=== PATIENT | male | born 1935 | race African-American/Black ===

== ENCOUNTER 2016-07-20 10:36 | Inpatient (IN) | payer OTHER ==
[~2016-07-20] VITALS: Ht 180.3 cm; Wt 113.0 kg
--- NOTE | ~2016-07-20 | PLAN ---
[facility] [place] [address] REHAB UNIT PLAN OF CARE Name: BRAYAN REZA Room #: 504-1 ADM IN M.R.#: [id number] Admission: 07/20/16 Attend Phys: Roland Duong MD Discharge: Date of : 37 Report #: [id number] THIS REPORT FOR: //name// CC: Roland Duong [facility] unknown DATE OF SERVICE: 07/22/2016 The patient was seen earlier. He was sleepy, but would arouse. His temperature is 36.5, pulse 68, respirations 20, blood pressure 174/68. He has been involved in therapies. Transfers are max assist. He walked 2 feet max with assist of 2 with a front-wheeled walker. In occupational therapy, lower body dressing is dependent, upper body dressing is min assist. In speech therapy, he has moderate comprehensive deficits with moderate expressive deficits. ASSESSMENT: 1. Medical complexity with generalized debilitation. 2. Acute hypoxemic hypercapnic respiratory failure that resolved. 3. Recent pneumococcal pneumonia with sepsis. 2. Acute renal failure, undergoing hemodialysis as per Nephrology. 5. Obstructive sleep apnea. 6. Diabetes mellitus type 2. 7. Hypertension. 8. Obesity. PLAN: The overall plan of care is based on the preadmission screen, post-admission physician evaluation and information garnered from therapy assessments. 1. Estimated length of stay is probably going to be on the long side as he is at a lower functional level. 2. Medical prognosis is reasonably good. 3. Anticipated interventions includes the interdisciplinary acute inpatient rehabilitation program with PT, OT and speech, rehabilitation nursing assisting regarding medication management, skin care prophylaxis, bowel and bladder issues and nursing education. 4. Anticipated functional outcomes would be for the patient to ideally improve as far as being min assist with basic transfers and short distance ambulation with a walker. Ideally, he will achieve independence, but he need to at least get to the level where his can handle him at home. 5. The patient's destination will be back to the home setting where he lives with his . 6. Expected therapy by discipline includes PT, OT and speech 1 [place] [address] REHAB UNIT PLAN OF CARE Name: BRAYAN REZA Room #: 504-1 ADM IN M.R.#: [id number] Admission: 07/20/16 Attend Phys: Roland Duong MD Discharge: Date of : 37 Report #: [id number] each, 5 days a week throughout the duration of the acute inpatient rehabilitation stay. <ELECTRONICALLY SIGNED> By: Roland Duong MD 08/04/16 1409 1023 1148 Roland Duong MD /nt
--- NOTE | ~2016-07-20 | EKG ---
[address] [address] ELECTROCARDIOGRAM REPORT Name: BRAYAN REZA Room #: 506-1 ADM IN M.R.#: [id number] Admission: 07/20/16 Attend Phys: Roland Duong MD Discharge: Date of : 37 Report #: [id number] THIS REPORT FOR: //name// [facility] Test Date: 2016-07-20 Test Time: 18:55:02 Pat Name: BRAYAN REZA Department: Room: 506 Gender: M Ultrasound Applications Specialist: Kory TURCIOS : 1935 Requested By: Roland Duong Order Number: [id number] MD: Long Erwin Measurements Intervals [place] Rate: 89 P: 53 LA: 202 QRS: -81 QRSD: 173 T: 37 QT: 415 QTc: 505 Interpretive Statements Sinus rhythm Probable left atrial enlargement RBBB and LAFB Compared to ECG 07/14/2016 01:16:33 Second-degree AV block, Mobitz type I (Wenckebach) no longer present Possible ischemia no longer present Electronically Signed On 07-21-2016 8:41:41 LEAN ENGINEER by Long Erwin [email or web address] <ELECTRONICALLY SIGNED> By: Long Erwin MD 07/21/16 0841 54 54 Long Erwin MD /EPI
--- NOTE | ~2016-07-20 | HC ---
[facility] [place] [address] CONSULTATION Name: BRAYAN REZA Room #: 504-1 ADM IN M.R.#: [id number] Admission: 07/20/16 Attend Phys: Roland Duong MD Discharge: Date of : 37 Report #: [id number] THIS REPORT FOR: //name// CC: Roland Duong [facility] unknown DATE OF SERVICE: 07/31/2016 ATTENDING PHYSICIAN: Roland Duong M.D. NEON SIGN ERECTOR: Byron Cordero, Ph.D. CLINICAL PRESENTATION: The patient is a 81-year-old male admitted to the [facility] Rehabilitation Unit for a comprehensive inpatient rehabilitation program to improve functional mobility and activities of daily living and self-care secondary to impairment from medical complexity and generalized debilitation. The patient was initially admitted to the [facility] for treatment of an acute hypoxemic hypercapnic respiratory failure. The respiratory failure has resolved, and he has returned to the rehabilitation unit for followup therapy. His initial assessment also includes recent pneumococcal pneumonia with sepsis; acute renal failure, likely acute on chronic, receiving hemodialysis; obstructive sleep apnea; diabetes mellitus type 2 and hypertension. A complete description of his medical condition and history can be found in his medical record. Neuropsychological consultation was requested to provide assistance in the assessment of cognitive and emotional status and to provide recommendations and services. Prior to this most recent admission, he was living at home with his . She has been helping him with instrumental and some basic activities of daily living. The patient is a high school graduate. 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 He has 2 children. His family is supportive. The patient had significant difficulty with verbal expression initially. However, his verbal expression is much improved at this time. TECHNIQUES UTILIZED: Clinical interview, review of medical records, staff consultation and behavioral observation, mini mental status exam 2 standard version and clock drawing. EXAMINATION FINDINGS: The patient was alert and cooperative with the assessment. He describes his current symptoms to include tiredness and fatigue, difficulty with memory and word finding. Decreased initiative is described by his . The patient does have subjective depression and anxiety in regard to initiative and self control. Increasing dependence on his and family can be seen as having had an impact on anxiety. [facility] [address] [place] [address] CONSULTATION Name: BRAYAN REZA Room #: 504-1 ADM IN .R.#: [id number] Admission: 07/20/16 Attend Phys: Roland Duong MD Discharge: Date of : 37 Report #: [id number] His performance on the mini mental status exam 2 brief version is improved to a raw score of 16. Earlier assessment was a raw score of 7. While impairment is still noted to be moderate to severe with a T score of 22 and percentile rank of less than 1. However, he was 3/3 for initial registration, 3/5 for orientation to time and 4/[address]. He was 1/3 for immediate recall of 3 items after a brief time delay and distraction. His performance improved on the MMSE 2 standard version from a raw score of 15 to a raw score of 19. He was 1/5 for Serial 7's, 2/2 for naming and 1/1 for repetition. He was 3/3 for auditory comprehension. He was able to read and follow a single command. The patient had difficulty with writing a sentence. He was unable to copy a simple geometric design. The patient also was unable to draw a clock and set the hands at a designated time. Perseveration and decreased organization was noted. Impairment in working memory is also suggested. DIAGNOSTIC IMPRESSION: Delirium appears to have resolved Major neurocognitive disorder (dementia), due to medical etiology, without behavior disorder - extent to be determined - moderate to severe at this time Adjustment disorder with depressed mood and anxiety. RECOMMENDATIONS: Continued structured therapy with frequent reorientation and redirection when necessary. He also would benefit from reassurance and support in regard to the safety of his environment. His describes him as improved and almost back to his premorbid prehospital state. Cuing and assistance with activities of daily living will likely still be necessary upon his discharge. Providing the patient with a written structure and schedule will also be of benefit in regard to cognitive compensation. Thank you very much for allowing me to provide the consultation on this patient. <ELECTRONICALLY SIGNED> By: Byron Cordero, PhD 08/01/16 1213 1801 2125 Byron Cordero, PhD /nt
--- NOTE | ~2016-07-20 | H ---
[facility] [place] [address] HISTORY AND PHYSICAL Name: BRAYAN REZA Room #: 506-1 ADM IN M.R.#: [id number] Admission: 07/20/16 Attend Phys: Roland Duong MD Discharge: Date of : 37 Report #: [id number] THIS REPORT FOR: //name// CC: Roland Duong [facility] unknown DATE OF SERVICE: 07/20/2016 HISTORY OF PRESENT ILLNESS: The patient is a 81-year-old male well known to me from his prior inpatient rehabilitation stay. He had pneumococcal sepsis with bacteremia, acute hypoxic respiratory failure that improved, second degree AV block, acute renal insufficiency superimposed on chronic kidney disease with dialysis and history of urinary retention, on Flomax. He had been on the acute inpatient rehab [facility], but was noted to have an episode of worsening responsiveness with increasing his creatinine as well as having an acute hypoxic respiratory failure for which he was discharged off the rehab [facility] down to the Intensive Care Unit. He was mechanically ventilated. He has since improved, has been extubated. His acute hypoxic hypercapnic respiratory failure has resolved. He continues on hemodialysis as per nephrology. He has a history of pneumococcal sepsis and group B strep. He was also noted to have a urinary tract infection. He does have medical complexity with generalized debilitation and has been readmitted for acute in-hospital inpatient rehabilitation. PAST MEDICAL HISTORY: Is per my prior history and physical. It includes hypertension, tobacco abuse, diabetes mellitus, neuropathy, obesity, peripheral vascular disease, chronic kidney disease stage II, coronary artery disease and cardiac stents. HABITS: Noted to be an every day, current smoker prior to his originally admission, 1 pack per day. Alcohol use weekly. SOCIAL HISTORY: He lives with his , house, two steps in, premorbid household ambulator with roller walker. He did need some help with socks and shoes. did instrumental ADLs. REVIEW OF SYSTEMS: No complaints of chest pain, shortness of breath or abdominal discomfort. PHYSICAL EXAMINATION: GENERAL: A 81-year-old -Swedish male in no obvious distress. VITAL SIGNS: Temperature 98.6, pulse 72, respirations 18, blood pressure 120/69. He had a CPAP in place. HEENT: Facies appeared to be symmetric. CHEST: Some diffuse decreased breath sounds. CARDIOVASCULAR: Sounded regular rate and rhythm. ABDOMEN: Obese, bowel sounds positive, nontender. [facility] [address] [place] [address] HISTORY AND PHYSICAL Name: BRAYAN REZA Room #: 506-1 ADM IN M.R.#: [id number] Admission: 07/20/16 Attend Phys: Roland Duong MD Discharge: Date of : 37 Report #: [id number] GENITOURINARY AND RECTAL: Deferred. NEUROLOGIC: Functional range of motion of both upper extremities, strength is grade 3+ to 4-/5. LOWER EXTREMITIES: No focal calf swelling, functional range of motion with strength grade 4-/5 to 3+/5. ASSESSMENT: 1. Medical complexity with generalized debilitation. 2. Acute hypoxemic hypercapnic respiratory failure that resolved. 3. Recent pneumococcal pneumonia with sepsis. 4. Acute renal failure, likely acute on chronic, receiving hemodialysis as per Nephrology. 5. Obstructive sleep apnea. Receiving nocturnal CPAP. 6. Diabetes mellitus type 2. 7. Hypertension. PLAN: Appreciate Nephrology involvement. They are discontinuing the Neurontin to be only given post-dialysis 3 times a week. Discontinuing the Ultram to make it q. 6 hours p.r.n. From a postadmission physician evaluation perspective, there are no relevant changes since the preadmission screening. Please see the above review of prior and current medical and functional conditions and comorbidities. Please see the patient's prior and current functional status. As far as risks of complications, he does have the multiple medical comorbidities as noted above. Initial plan of care involves the interdisciplinary acute inpatient rehabilitation program with PT and OT and speech involved and trying to improve his strength and endurance and functional independence. Measurable functional goals would be for him to hopefully become independent with basic functional mobility and ADLs at least at the walker level if not the wheelchair level. Prognosis is reasonably good with estimated length of stay probably fairly along with his lower functional level. Potential barriers would include his multiple medical comorbidities and his decreased functional status. <ELECTRONICALLY SIGNED> By: Roland Duong MD 07/21/16 1419 1047 1112 Roland Duong MD /nt
--- NOTE | ~2016-07-20 | EKG ---
[address] [address] ELECTROCARDIOGRAM REPORT Name: BRAYAN REZA Room #: 504-1 ADM IN M.R.#: [id number] Admission: 07/20/16 Attend Phys: Roland Duong MD Discharge: Date of : 37 Report #: [id number] THIS REPORT FOR: //name// [facility] Test Date: 2016-08-03 Test Time: 11:22:00 Pat Name: BRAYAN REZA Department: Room: [facility] Gender: M Safety Relief Valve Technician: AMIRA : 1935 Requested By: Bibi Jones Order Number: [id number] MD: Long Erwin Measurements Intervals [place] Rate: 79 P: 57 [place]: 187 QRS: -73 QRSD: 176 T: 7 QT: 436 QTc: 500 Interpretive Statements Sinus rhythm Probable left atrial enlargement RBBB and LAFB Compared to ECG 07/20/2016 18:55:02 No significant changes Electronically Signed On 08-04-2016 11:09:18 WATCH PARTS GRINDER by Long Erwin [email or web address] <ELECTRONICALLY SIGNED> By: Long Erwin MD 08/04/16 1109 21 21 Long Erwin MD /BRITTANI
--- NOTE | ~2016-07-20 | EKG ---
[address] [address] ELECTROCARDIOGRAM REPORT Name: BRAYAN REZA Room #: 504-1 ADM IN M.R.#: [id number] Admission: 07/20/16 Attend Phys: Roland Duong MD Discharge: Date of : 37 Report #: [id number] THIS REPORT FOR: //name// [facility] Test Date: 2016-08-02 Test Time: 08:31:55 Pat Name: BRAYAN REZA Department: Room: [facility] Gender: M Glass Bead Maker: ashanti : 1935 Requested By: Roland Duong Order Number: [id number] MD: Long Erwin Measurements Intervals [place] Rate: 91 P: 50 [place]: 185 QRS: -87 QRSD: 172 T: 24 QT: 421 QTc: 519 Interpretive Statements Sinus rhythm RBBB and LAFB Baseline wander in lead(s) V6 Compared to ECG 07/20/2016 18:55:02 No significant changes Electronically Signed On 08-04-2016 10:50:07 INDUSTRIAL PROPERTY APPRAISER by Long Erwin [email or web address] <ELECTRONICALLY SIGNED> By: Long Erwin MD 08/04/16 1050 0 0 Long Erwin MD /BRITTANI
[~2016-07-20 10:36] MED LIST: ASPIRIN EC325 M1 PO; ATORVASTATIN CA40 MG PO; AUGMENTIN 875875 MG PO; BENGAY GREASELE57 GM; CARVEDILOL25 MG PO; DITROPAN XL5 M1 PO; DUONEB 2.5-0.5 M3 ML INH; FINASTERIDE5 MG PO; FLOMAX0.4 MG PO; HUMALOG100 UNIT/1 SUBQ; HYDRALAZINE 5050 MG PO; HYDROCHLOROTHIA25 M2 PO; KETOCONAZOLE60 GM; LEVEMIR FL100 UNIT/2 SQ; LEVEMIR SUBQ; LIPITOR80 MG PO; METFORMIN HCL1000 MG PO; MIRALAX255 GM PO; NAPROSYN500 MG PO; NEURONTIN 300300 M1 PO; NORVASC10 MG PO; NOVOLOG100 UNIT/1 SUBQ; PANTOPRAZOLE SO40 M1 PO; PLAVIX 75 MG TA75 M1 PO; PREDNISONE 10 M10 MG PO; PREDNISONE 20 M20 MG PO; TRAMADOL 50 MG50 MG PO; VIAGRA100 MG PO; VITAMIN B-121000 MCG PO; VITAMIN D1000 UNI2 PO; ZESTRIL40 MG PO
[2016-07-20 15:25] VITALS: BP 138/60
[2016-07-20 18:45] VITALS: BP 148/52
[2016-07-21 05:02] VITALS: BP 120/69
[2016-07-21 05:40] LABS: HEMATOCRIT 31.3 % (42.0-52.0); HEMOGLOBIN 10.2 gm/dL (14.0-18.0); MCH 27.7 pg (26.0-34.0); MCHC 32.4 % (28.0-37.0); MCV 85.5 fL (80.0-100.0); RBC 3.67 mil/uL (4.50-6.00); RDW 16.9 % (10.5-14.5); WBC 8.4 thou/uL (4.0-11.0)
[2016-07-21 06:06] LABS: ALBUMIN 2.9 g/dL (3.4-5.0); CALCIUM 9.2 mg/dL (8.5-10.1); MAGNESIUM 2.4 mg/dL (1.8-2.4); PHOSPHORUS 6.3 mg/dL (2.5-4.9); POTASSIUM 4.2 mmol/L (3.5-5.1); TOTAL BILIRUBIN 0.3 mg/dL (<0.1-1.0); TOTAL PROTEIN 7.1 g/dL (6.4-8.2)
[2016-07-21 09:00] VITALS: BP 127/59
[2016-07-21 13:30] VITALS: BP 149/66
[2016-07-21 16:36] VITALS: BP 167/79
[2016-07-21 21:00] VITALS: BP 166/71
[2016-07-22 05:23] VITALS: BP 174/68
[2016-07-22 06:15] LABS: HEMATOCRIT 33.4 % (42.0-52.0); HEMOGLOBIN 10.9 gm/dL (14.0-18.0); MCH 27.7 pg (26.0-34.0); MCHC 32.5 % (28.0-37.0); MCV 85.3 fL (80.0-100.0); RBC 3.92 mil/uL (4.50-6.00); RDW 17.1 % (10.5-14.5); WBC 10.6 thou/uL (4.0-11.0)
[2016-07-22 06:38] LABS: ALBUMIN 3.1 g/dL (3.4-5.0); CALCIUM 9.5 mg/dL (8.5-10.1); CREATININE 8.9 mg/dL (0.6-1.3); POTASSIUM 4.7 mmol/L (3.5-5.1)
[2016-07-22 06:57] LABS: PHOSPHORUS 9.1 mg/dL (2.5-4.9)
[2016-07-22 20:22] VITALS: BP 109/50
[2016-07-23 05:34] VITALS: BP 119/48
[2016-07-23 15:53] VITALS: BP 117/69
[2016-07-23 20:16] VITALS: BP 106/46
[2016-07-24 05:07] VITALS: BP 145/59
[2016-07-24 16:00] VITALS: BP 138/43
[2016-07-25 03:58] VITALS: BP 130/56
[2016-07-25 07:45] LABS: HEMATOCRIT 28.7 % (42.0-52.0); HEMOGLOBIN 9.5 gm/dL (14.0-18.0); MCH 28.2 pg (26.0-34.0); MCV 85.4 fL (80.0-100.0); RBC 3.36 mil/uL (4.50-6.00); RDW 16.8 % (10.5-14.5); WBC 7.5 thou/uL (4.0-11.0)
[2016-07-25 08:01] LABS: ALBUMIN 2.7 g/dL (3.4-5.0); CALCIUM 8.5 mg/dL (8.5-10.1); CREATININE 8.8 mg/dL (0.6-1.3); PHOSPHORUS 6.3 mg/dL (2.5-4.9); POTASSIUM 4.1 mmol/L (3.5-5.1)
[2016-07-25 21:00] VITALS: BP 126/52
[2016-07-25 23:11] LABS: % SATURATION 27 % (15-55); IRON 59 ug/dL (38-169); TIBC 218 ug/dL (250-450); UIBC 159 ug/dL (111-343)
[2016-07-26 05:49] VITALS: BP 145/60
[2016-07-26 15:30] VITALS: BP 133/56
[2016-07-26 20:15] VITALS: BP 133/56
[2016-07-27 05:08] VITALS: BP 157/61
[2016-07-27 20:25] VITALS: BP 127/55
[2016-07-28 05:29] VITALS: BP 136/56
[2016-07-28 15:18] VITALS: BP 133/63
[2016-07-28 20:26] VITALS: BP 135/62
[2016-07-29 04:44] VITALS: BP 143/57
[2016-07-29 05:32] LABS: HEMATOCRIT 26.9 % (42.0-52.0); HEMOGLOBIN 8.9 gm/dL (14.0-18.0); MCH 28.4 pg (26.0-34.0); MCHC 33.2 % (28.0-37.0); MCV 85.6 fL (80.0-100.0); RBC 3.14 mil/uL (4.50-6.00); WBC 8.5 thou/uL (4.0-11.0)
[2016-07-29 05:46] LABS: ALBUMIN 2.7 g/dL (3.4-5.0); CALCIUM 8.5 mg/dL (8.5-10.1); CREATININE 7.3 mg/dL (0.6-1.3)
[2016-07-29 20:07] VITALS: BP 126/62
[2016-07-30 05:37] VITALS: BP 130/60
[2016-07-30 07:44] VITALS: BP 126/59
[2016-07-30 15:19] VITALS: BP 118/47
[2016-07-30 21:10] VITALS: BP 115/59
[2016-07-31 04:24] VITALS: BP 130/68
[2016-07-31 15:45] VITALS: BP 120/56
[2016-08-01 02:45] VITALS: BP 124/51
[2016-08-01 03:57] LABS: HEMATOCRIT 26.7 % (42.0-52.0); HEMOGLOBIN 8.7 gm/dL (14.0-18.0); MCH 28.4 pg (26.0-34.0); MCHC 32.5 % (28.0-37.0); MCV 87.5 fL (80.0-100.0); RBC 3.05 mil/uL (4.50-6.00); RDW 16.5 % (10.5-14.5); WBC 6.1 thou/uL (4.0-11.0)
[2016-08-01 04:11] LABS: ALBUMIN 2.6 g/dL (3.4-5.0); CALCIUM 8.6 mg/dL (8.5-10.1); CREATININE 7.9 mg/dL (0.6-1.3); POTASSIUM 4.1 mmol/L (3.5-5.1)
[2016-08-01 11:19] VITALS: BP 106/52
[2016-08-01 16:28] VITALS: BP 100/59
[2016-08-01 20:11] VITALS: BP 134/49
[2016-08-02 05:40] VITALS: BP 110/46
[2016-08-02 09:00] VITALS: BP 98/46
[2016-08-02 09:09] LABS: ABSOLUTE NEUTROPHILS 4.2 thou/uL (1.4-8.2); BASOPHILS 0.5 % (0.0-2.0); EOSINOPHILS 1.8 % (0.0-3.0); HEMATOCRIT 26.7 % (42.0-52.0); HEMOGLOBIN 8.8 gm/dL (14.0-18.0); LYMPHOCYTES 18.3 % (24.0-44.0); MCH 28.7 pg (26.0-34.0); MCHC 32.9 % (28.0-37.0); MCV 87.2 fL (80.0-100.0); MONOCYTES 7.3 % (1.0-8.0); PLATELET COUNT 154 thou/uL (150-400); POLYS 72.1 % (36.0-66.0); RBC 3.06 mil/uL (4.50-6.00); RDW 16.6 % (10.5-14.5); WBC 5.8 thou/uL (4.0-11.0)
[2016-08-02 09:11] LABS: MANUAL DIFF NO
[2016-08-02 09:21] LABS: CALCIUM 8.7 mg/dL (8.5-10.1); POTASSIUM 3.7 mmol/L (3.5-5.1)
[2016-08-02 09:25] LABS: ALBUMIN 2.7 g/dL (3.4-5.0); MAGNESIUM 1.5 mg/dL (1.8-2.4); PHOSPHORUS 2.4 mg/dL (2.5-4.9)
[2016-08-02 09:26] LABS: CREATININE 6.1 mg/dL (0.6-1.3)
[2016-08-02 11:00] VITALS: BP 110/64
[2016-08-02 13:28] VITALS: BP 96/47
[2016-08-02 16:00] VITALS: BP 108/58
[2016-08-03 06:20] VITALS: BP 142/41
[2016-08-04 05:05] VITALS: BP 143/59
[2016-08-04 08:57] VITALS: BP 101/50
[2016-08-04 10:05] VITALS: BP 108/49
[2016-08-04 14:39] VITALS: BP 114/54
[2016-08-05 05:31] VITALS: BP 126/56
[2016-08-05 06:15] LABS: HEMATOCRIT 25.1 % (42.0-52.0); HEMOGLOBIN 8.1 gm/dL (14.0-18.0); MCH 28.4 pg (26.0-34.0); MCHC 32.4 % (28.0-37.0); MCV 87.6 fL (80.0-100.0); RBC 2.87 mil/uL (4.50-6.00); RDW 16.5 % (10.5-14.5); WBC 6.3 thou/uL (4.0-11.0)
[2016-08-05 06:33] LABS: ALBUMIN 2.5 g/dL (3.4-5.0); CALCIUM 8.2 mg/dL (8.5-10.1); CREATININE 6.9 mg/dL (0.6-1.3); PHOSPHORUS 1.7 mg/dL (2.5-4.9); POTASSIUM 3.7 mmol/L (3.5-5.1)
[2016-08-05 16:35] VITALS: BP 126/62
[2016-08-05 20:20] VITALS: BP 122/69
[2016-08-06 05:29] VITALS: BP 142/65
[2016-08-06 16:00] VITALS: BP 140/51
[2016-08-06 20:50] VITALS: BP 150/55
[2016-08-07 05:27] VITALS: BP 142/86
[2016-08-07 12:14] LABS: URINE BILIRUBIN NEGATIVE (Negative); URINE BLOOD NEGATIVE (Negative); URINE COLOR YELLOW; URINE GLUCOSE-RANDOM* NEGATIVE (Negative); URINE KETONES NEGATIVE (Negative); URINE LEUKOCYTES-REFLEX TRACE (Negative); URINE PROTEIN (DIPSTICK) 2+ (Negative); URINE SPECIFIC GRAVITY 1.015 (1.003-1.035); URINE UROBILINOGEN 0.2 E.U./dl (0.2-1.0)
[2016-08-07 12:35] LABS: CASTS None Seen /LPF (None Seen); SQUAMOUS 4-10 Moderate /LPF (0-3)
[2016-08-07 12:36] LABS: CRYSTALS None Seen /LPF (None Seen); URINE RBC None Seen /HPF (0-2); URINE WBC-REFLEX 6-15 Few /HPF (0-5)
[2016-08-07 17:45] VITALS: BP 134/56
[2016-08-07 20:14] LABS: ABSOLUTE NEUTROPHILS 3.6 thou/uL (1.4-8.2); BASOPHILS 0.2 % (0.0-2.0); HEMATOCRIT 24.5 % (42.0-52.0); HEMOGLOBIN 8.3 gm/dL (14.0-18.0); LYMPHOCYTES 18.8 % (24.0-44.0); MCHC 33.8 % (28.0-37.0); MCV 85.8 fL (80.0-100.0); MONOCYTES 8.5 % (1.0-8.0); PLATELET COUNT 150 thou/uL (150-400); POLYS 68.5 % (36.0-66.0); RBC 2.86 mil/uL (4.50-6.00); RDW 16.5 % (10.5-14.5); WBC 5.3 thou/uL (4.0-11.0)
[2016-08-07 20:15] LABS: MANUAL DIFF NO
[2016-08-08 03:37] VITALS: BP 122/45
[2016-08-08 05:45] VITALS: BP 137/60
[2016-08-08 06:45] VITALS: BP 111/51
[2016-08-08 11:26] VITALS: BP 115/48
[2016-08-08 18:31] VITALS: BP 145/66
[2016-08-08 19:37] VITALS: BP 154/65
[2016-08-09 04:17] VITALS: BP 138/59
[2016-08-09 06:42] LABS: ALBUMIN 2.5 g/dL (3.4-5.0); CALCIUM 8.6 mg/dL (8.5-10.1); CREATININE 5.9 mg/dL (0.6-1.3); PHOSPHORUS 2.6 mg/dL (2.5-4.9); POTASSIUM 3.9 mmol/L (3.5-5.1)
[2016-08-09 15:30] VITALS: BP 137/51
[2016-08-09 20:00] VITALS: BP 129/59
[2016-08-10 06:06] VITALS: BP 122/42
[2016-08-11 04:54] LABS: ALBUMIN 2.4 g/dL (3.4-5.0); CALCIUM 8.4 mg/dL (8.5-10.1); PHOSPHORUS 2.1 mg/dL (2.5-4.9); POTASSIUM 3.7 mmol/L (3.5-5.1)
[2016-08-11 04:55] LABS: CREATININE 4.8 mg/dL (0.6-1.3)
[2016-08-11 05:19] VITALS: BP 152/63
[2016-08-11 08:53] VITALS: BP 132/59
[2016-08-11 13:09] VITALS: BP 126/59
[2016-09-14] MEDS ORDERED: LANTUS SOL100 UNIT/1 SQ (01:41)
[2016-09-14] MEDS ORDERED: RENA-VITE RX T1 EACH PO (01:42)
[2016-09-14] MEDS ORDERED: GABAPENTIN 100100 MG PO (01:43)
[2016-09-15] MEDS ORDERED: ELIQUIS5 MG PO (10:28)
== END 2016-08-11 16:10 | DRG 947 ==
PROVIDERS: Hospitalist; Internal Medicine Nephrology; Physical Medicine & Rehabilitation
PROC: 5A1D60Z (ICD-10-PCS; 2016-08-10)
PROC: 05PYX3Z Removal of Infusion Device from Upper Vein, External Approach (ICD-10-PCS; principal; 2016-08-11)
DX: R53.81 Other malaise (principal); J96.01 Acute respiratory failure with hypoxia; J96.02 Acute respiratory failure with hypercapnia; N18.6 End stage renal disease; N17.9 Acute kidney failure, unspecified; I12.0 Hypertensive chronic kidney disease with stage 5 chronic kidney disease or end stage renal disease; G47.33 Obstructive sleep apnea (adult) (pediatric); E11.22 Type 2 diabetes mellitus with diabetic chronic kidney disease; E66.9 Obesity, unspecified; F01.50 Vascular dementia, unspecified severity, without behavioral disturbance, psychotic disturbance, mood disturbance, and anxiety; F43.23 Adjustment disorder with mixed anxiety and depressed mood; D64.9 Anemia, unspecified; I25.10 Atherosclerotic heart disease of native coronary artery without angina pectoris; Z99.2 Dependence on renal dialysis; Z68.34 Body mass index [BMI] 34.0-34.9, adult; Z95.5 Presence of coronary angioplasty implant and graft; Z88.8 Allergy status to other drugs, medicaments and biological substances; Z91.041 Radiographic dye allergy status
CPT/HCPCS: 10092; 10112; 32100

== ENCOUNTER 2016-10-16 20:33 | Inpatient (IN) | payer OTHER ==
[~2016-10-16] VITALS: Ht 177.8 cm; Wt 100.0 kg
--- NOTE | ~2016-10-16 | CATHLAB ---
[facility] [address] [place] [address] INVASIVE PROCEDURE REPORT Name: BRAYAN REZA Room #: 241-P [facility] IN ..#: [id number] Admission: 10/16/16 Attend Phys: Sachin Fairbanks MD Discharge: 10/19/16 Date of : 37 Date of Service: 10/16/162225 Report #: [id number] THIS REPORT FOR: //name// CC: Damon Fairbanks PROCEDURE: Temporary transvenous pacer insertion. INDICATIONS: A 81-year-old male patient with symptomatic complete AV block and bradycardia with hypotension. CREDIT CONTROL ADMINISTRATOR: Lisandro Hanna MD. DESCRIPTION OF PROCEDURE: After informed consent was obtained, the patient was brought to the cardiac catheterization laboratory in stable condition. The right groin was prepped and draped in usual sterile manner. A 6-Albanian venous sheath was then inserted via modified Seldinger technique. Under fluoroscopic visualization, the 5-Albanian temporary wire was then advanced and positioned in the right ventricular apex. The capture and sensing thresholds were verified at less than 0.4 capture at an 0.4. No complications. Sheath was sewn in place. FINAL SETTINGS: A. volts. B. Demand rate of 70. <ELECTRONICALLY SIGNED> By: Lisandro Hanna MD 10/20/16 0131 25 1121 Lisandro Hanna MD /nt
--- NOTE | ~2016-10-16 | H ---
[facility] [place] [address] HISTORY AND PHYSICAL Name: BRAYAN REZA Room #: 241-P ADM IN M.R.#: [id number] Admission: 10/16/16 Attend Phys: Sachin Fairbanks MD Discharge: Date of : 37 Report #: [id number] THIS REPORT FOR: //name// CC: Damon Faibranks DATE OF SERVICE: 10/16/2016 ATTENDING PHYSICIAN: Dr. Bibi Jones. PRIMARY CARE PHYSICIAN: At the [place]. CHIEF COMPLAINT: Altered mental status. HISTORY OF PRESENT ILLNESS: The patient is a 81-year-old male who lives at home with his . Apparently, he started having confusion today. They report that he is normally alert and oriented. He was brought into the ER and he was noted to have a heart rate of 30. He was then in complete heart block and has already been taken for temporary pacemaker placement. He is currently seen postprocedure and in the ICU. He was apparently acting normal well at dialysis today and started acting confused afterwards. He was actually admitted here in September for syncope and no etiology was found during that admission. Initially, in the ER, he was given atropine and calcium gluconate without any improvement in his heart rate, he is now being effectively paced, and he remains slightly confused. His is not present at this time. He is not able to tell me where he is. He gets distracted very easily and starts rambling about other things. He was able to tell me his own birthday. He was able to tell me it was October, but he did not know the year. He is denying any chest pain. PAST MEDICAL HISTORY: Hypertension, obstructive sleep apnea, diabetes, peripheral neuropathy, obesity, pes planus, PVD, end-stage renal disease on hemodialysis, coronary artery disease. PAST SURGICAL HISTORY: Coronary stent x 2, appendectomy. ALLERGIES: LISINOPRIL CAUSED ANGIOEDEMA, CONTRAST DYE, VARDENAFIL UNKNOWN REACTION. HOME MEDICATIONS: DuoNeb q. 4 hours p.r.n., Flomax 0.4 mg daily, Plavix 75 mg daily, Lipitor 80 mg daily, tramadol 50 mg q. 4h. p.r.n., Neurontin 100 mg at bedtime, MiraLax daily p.r.n., Protonix 40 mg daily, Lantus insulin 5 units at bedtime, vitamin B12 daily, Renal Caps 1 tab daily and vitamin D 1000 units daily. [address] [address] HISTORY AND PHYSICAL Name: BRAYAN REZA Room #: 241-P [facility] IN [facility].#: [id number] Admission: 10/16/16 Attend Phys: Sachin Fairbanks MD Discharge: Date of : 37 Report #: [id number] SOCIAL HISTORY: The patient is a smoker, smoking up to 1 pack per day for the last 50 years. Denies any alcohol or drug use. He ambulates with a walker or uses a wheelchair. He lives at home with his . FAMILY HISTORY: Significant for diabetes. REVIEW OF SYSTEMS: Unobtainable due to altered mental status. His previous records were reviewed. He was here in June of last year and had an echocardiogram at that time, which showed an EF of 50-55% with mild LVH. PHYSICAL EXAMINATION: GENERAL: The patient is an alert, but confused male, in no acute distress. VITAL SIGNS: Temperature is 36.6, initially heart rate was 32, it is currently 70 and paced, respirations 22, blood pressure is 123/36, oxygen initially was 87% on room air, it is now 98% per CPAP. HEENT: PERRLA. Sclerae are nonicteric. Oral mucosa is pink and moist. NECK: Supple, no JVD noted. CARDIOVASCULAR: Normal S1, S2 with an occasional irregular beat. RESPIRATORY: Breath sounds are clear bilateral upper lobes. He is diminished in both bases. Breathing is nonlabored. ABDOMEN: Obese, soft, nontender, nondistended with positive bowel sounds. VASCULAR: 1+ bilateral lower extremity edema noted. Pedal pulses are 1+. Feet are somewhat cool. In his right groin, he does have the temporary pacer line and the site is clean, dry and intact. NEUROLOGIC: The patient is alert. He is slightly confused to place and time, although he was able to tell me his name and birthday. He is able to follow commands and is moving all extremities equally. No focal weakness noted. LABORATORY AND DIAGNOSTICS: WBC is 5.3, hemoglobin 10.1, platelets 325. Sodium 135, potassium 4.4, BUN 17, creatinine 5.1, glucose 124. Magnesium 1.9. Troponins negative. BNP 6649. Chest x-ray is negative. Initial EKG showed complete heart block, rate of 33. ASSESSMENT AND PLAN: 1. Complete heart block. The patient has been taken to blender laborer for a temporary pacer. He is currently paced at a rate of 70. Cardiology is following and he will likely need a permanent pacemaker placement. Continue to monitor on telemetry. 2. Altered mental status, possibly due to bradycardia. There is no focal weakness or facial droop or concerns for stroke at this time, but if his confusion persists, we will need to check a CT of the head. We will check a UA to rule out infection, although he is afebrile without leukocytosis. 3. Diabetes type 2. Blood sugar is stable. Continue Lantus at home and add sliding scale insulin. 4. Obstructive sleep apnea. Continue CPAP at night. 5. Coronary artery disease with prior stents. He is denying any chest pain and [facility] [address] [place] [address] HISTORY AND PHYSICAL Name: BRAYAN REZA Room #: 241-P ADM IN M.R.#: [id number] Admission: 10/16/16 Attend Phys: Sachin Fairbanks MD Discharge: Date of : 37 Report #: [id number] troponins negative. Continue aspirin and Plavix daily. 6. End-stage renal disease. He is on hemodialysis on Mondays, Wednesdays, and Fridays. If he is still here through Sunday, we will consult renal for dialysis. No signs of acute fluid overload. 7. Deep venous thrombosis prophylaxis, place sequential compression devices. We will continue to follow the patient closely throughout the hospitalization and make changes based on clinical status. By: 0557 0850 CLINTON Summers /dominik
--- NOTE | ~2016-10-16 | HC ---
[facility] [place] [address] CONSULTATION Name: BRAYAN REZA Room #: 241-P [facility] IN M.R.#: [id number] Admission: 10/16/16 Attend Phys: Sachin Fairbanks MD Discharge: 10/19/16 Date of : 39 Report #: [id number] THIS REPORT FOR: //name// CC: Damon Fairbanks DATE OF CONSULTATION: 10/16/2016. REASON FOR CONSULTATION: Symptomatic AV block. HISTORY OF PRESENT ILLNESS: This is a very pleasant gentleman who is pleasantly confused. He developed more profound altered mental status after having been on dialysis earlier today. When he was brought to the Emergency Room, he was found to be confused and heart rate in the 30s with a borderline systolic blood pressures between 90 and 105. He had some episodes, no rales to 130 systolic. The patient apparently developed this bradycardia and subsequently was transferred upon discussion with the over the phone she said that this is the 6 time this happened. Last time was monitored and evaluated by Cardiology where rapid resolution of his bradycardia post-dialysis yielded no indications for permanent pacing. The patient has done well since June until this episode. He cannot convey ny further history. PAST MEDICAL HISTORY: Significant for: 1. Hypertension. 2. Coronary artery disease, having intracardiac stenting in the LAD in the past. 3. Chronic kidney disease and dialysis. 4. Sleep apnea syndrome, using CPAP at night. 5. Diabetes mellitus with triopathy. 6. Obesity. 7. Peripheral vascular disease. 8. Degenerative joint disease. PAST SURGICAL HISTORY: Significant 1. Coronary stents. 2. A temporary dialysis catheter is in the chest. MEDICATIONS: At home were atorvastatin, pantoprazole, DuoNebs, Humalog, Eliquis, Ultram, Flomax, vitamin D, Plavix, MiraLax. ALLERGIES: ASPIRIN AND CONTRAST DYE, BLACK PEPPER. SOCIAL HISTORY: The patient continues to smoke, does not consume alcohol. Does not follow particular exercise regimen or dietary restriction. Electrocardiogram demonstrates complete heart block, symptomatic bradycardia at a heart rate of 32. [facility] [address] [place] [address] CONSULTATION Name: BRAYAN REZA Room #: 241-P [facility] IN M.R.#: [id number] Admission: 10/16/16 Attend Phys: Sachin Fairbanks MD Discharge: 10/19/16 Date of : 39 Report #: [id number] REVIEW OF SYSTEMS: Obtained from the old chart and except for symptoms previously mentioned and those commensurate with comorbid states appears to be negative as well as I can ascertain. PHYSICAL EXAMINATION: GENERAL: Well-developed -Swedish male resting and pleasantly confused. VITAL SIGNS: Noted and reviewed in the chart. HEENT: Normocephalic, atraumatic. Pupils are equal, round, reactive to light and accommodation. Extraocular muscles are intact. Sclerae and conjunctivae are anicteric. NECK: JVD is normal. Carotid upstrokes are bilaterally symmetrical. No bruits are heard. No thyromegaly. No lymphadenopathy. LUNGS: Clear to auscultation. No wheezes, rhonchi or crackles. No CVA tenderness. CARDIAC: Demonstrates a regular rhythm. Normal first and second heart sounds. No ventricular or atrial gallops, no rubs noted. No lifts or heaves, PMI normal. Demonstrates a regular rhythm with a soft first heart sound. Systolic murmur is noted. No diastolic murmurs are heard. ABDOMEN: Soft, nontender, nondistended. Normal bowel sounds. EXTREMITIES: Without cyanosis, clubbing or edema. Distal pulses are intact. DTR symmetrical. NEUROLOGIC: Cranial nerves 2-12 are grossly normal and symmetrical. PSYCHIATRIC: Alert, oriented with normal affect. SKIN: Warm and dry. IMPRESSION: 1. Symptomatic bradycardia with AV block. He does have a history of atrial fibrillation in the past. The issue is initially because of borderline blood pressures and the fact that his 's stated that he gets much more confused his bradycardia, we will proceed with temporary venous pacemaker. We will place that tonight and then reassess on a daily basis. If he had been on Eliquis we cannot proceed with any type or permanent pacing until at least Sunday. We will need to further delineate his last dosing. 2. , not an issue at this juncture do the AV block. 3. Renal disease, dialyzed today as per nephrology and primary care. 4. Confusion multifactorial. [address] [address] CONSULTATION Name: BRAYAN REZA Room #: 241-P [facility] IN M.R.#: [id number] Admission: 10/16/16 Attend Phys: Sachin Fairbanks MD Discharge: 10/19/16 Date of : 39 Report #: [id number] 5. Diabetes mellitus. We will monitor glucose etc. 6. Sleep apnea syndrome, will likely need to have a CPAP machine in place. <ELECTRONICALLY SIGNED> By: Lisandro Hanna MD 10/20/16 0131 2232 1151 Lisandro Hanna MD /nt
--- NOTE | ~2016-10-16 | CATHLAB ---
[facility] [address] [place] [address] INVASIVE PROCEDURE REPORT Name: BRAYAN REZA Room #: 241-P [facility]#: [id number] Admission: 10/16/16 Attend Phys: Sachin Fairbanks MD Discharge: 10/19/16 Date of : 39 Date of Service: 10/19/16 0930 Report #: [id number] THIS REPORT FOR: //name// CC: Damon Fairbanks DATE OF SERVICE: 10/18/2016 PERMANENT PACEMAKER IMPLANTATION REPORT INDICATIONS: A 81-year-old male with complete and high-grade AV block with confusion, hypotension and variable blood pressure. PROCEDURES: 1. Permanent pacemaker implantation with: a. A [employer] generator model GF0025, serial #[id number]. b. Right ventricular lead is a [employer] model 2088TC/58, serial #[id number]. c. Right atrial lead, [employer] model 2088TC/52, serial #[id number]. 2. Supervision of conscious sedation. PRODUCT SUPPORT MANAGER: Lisandro Hanna M.D. BRIEF DESCRIPTION OF PROCEDURE: After informed consent was obtained, the patient was brought to the cardiac catheterization laboratory in stable condition. He was monitored continuously with O2 sat and electrocardiographic monitoring. Conscious sedation was achieved with a combination of Fentanyl and Versed in numerous regulated aliquots as noted in the chart. The chest was prepped and draped in the usual sterile manner. The second rib was then identified and the initial incision line was instilled with 1% lidocaine. Both superficial and deep local anesthetic was then instilled. Following the institution, utilizing an 11 blade, a pocket was generated using both blunt and sharp dissection. Cautery was utilized to deal with small bleeders. There was one larger vein bleeder that was sutured with [id number] sutures and achieved complete hemostasis. Following development of pocket, the subclavian vein was then accessed in 2 specific separate picks utilizing a modified Seldinger technique, sheaths were placed. Leads were then advanced under fluoroscopic visualization, positioned and capture and sensing thresholds were identified, which are noted in the chart. These are a right atrial P-wave of 3.4 and right ventricular R-wave of 4.8, with significant injury pattern noted on the ECG. Impedance in the atrium and ventricle were 422 and 582 respectively, with thresholds of 0.5 and 1.2 respectively. Settings were pulse width of 0.5, with an of 0.9 and 1.9 respectively. Following the verification of the pocket in the chest, the device was then drenched and washed with antibiotic solution. The device was placed in the pocket and 2-layer closure with unabsorbable running locking stitch for the deeper 2 layers and an absorbable 3-0 Vicryl subcuticular to the skin. Adequate hemostasis was noted. [address] [address] INVASIVE PROCEDURE REPORT Name: REZABRAYAN Room #: 241-P [facility] IN M.R.#: [id number] Admission: 10/16/16 Attend Phys: Sachin Fairbanks MD Discharge: 10/19/16 Date of : 39 Date of Service: 10/19/16 0930 Report #: [id number] The incision was excellent. Steri-Strips, 4 x 4's and Op-Site were then placed. The patient tolerated the procedure well. There was no significant blood loss. <ELECTRONICALLY SIGNED> By: Lisandro Hanna MD 10/23/16 1721 0930 1252 Lisandro Hanna MD /nt
--- NOTE | ~2016-10-16 | HC ---
[facility] [place] [address] [place] [address] CONSULTATION Name: BRAYAN REZA Room #: 241-P [facility] IN M.R.#: [id number] Admission: 10/16/16 Attend Phys: Sachin Fairbanks MD Discharge: Date of : 39 Report #: [id number] THIS REPORT FOR: //name// CC: Damon Fairbanks DATE OF SERVICE: 10/17/2016 INTENSIVE CARE UNIT RENAL CONSULTATION REASON FOR CONSULTATION: End-stage renal disease and symptomatic bradycardia in this patient with diabetes mellitus and hypertension. HISTORY OF PRESENT ILLNESS: This pleasant 81-year-old male is known to me from 2016 [facility] hospitalizations. He was begun on dialysis treatment at that time and has been maintained on dialysis in [place]. He dialyzed yesterday uneventfully, but became very lightheaded and was found to be bradycardic following his dialysis treatment. He was brought to the [facility] emergency room, where he was found to be in complete heart block. He was taken to the catheterization laboratory by Dr. Hanna, where he underwent placement of a temporary pacemaker. He is seen post-procedure in the intensive care unit with a pulse, which is paced at the rate of 72. He is alert and cooperative. He has no physical complaints at this time. PAST MEDICAL HISTORY: Remarkable for dyslipidemia, hypertension, diabetes mellitus, obstructive sleep apnea, previous cardiac stents and an episode of acute respiratory failure requiring intubation and mechanical ventilation during his 2016 [facility] hospitalization. PERSONAL AND SOCIAL HISTORY: Remarkable for ongoing tobacco abuse at one pack per day. He does not consume alcohol or have any history of substance abuse. FAMILY HISTORY: Negative for renal disease. MEDICATIONS: On admission include Humalog insulin, DuoNeb inhalation, Flomax, Ultram, vitamin D3, Plavix, MiraLax, Lantus, Nephro-Fidel, Neurontin, aspirin, vitamin B12, and atorvastatin. REVIEW OF SYSTEMS: Remarkable as described in the history of present illness. He denies fever, chills, sweats, or other constitutional complaints. He denies shortness of breath, productive cough, hemoptysis, chest pain, or palpitations. He denies nausea, vomiting, diarrhea, or constipation. PHYSICAL EXAMINATION: GENERAL: Reveals a well-developed, well-nourished, pleasant male, appearing his [facility] [address] [address] CONSULTATION Name: BRAYAN REZA Room #: 241-P [facility] IN M.R.#: [id number] Admission: 10/16/16 Attend Phys: Sachin Fairbanks MD Discharge: Date of : 39 Report #: [id number] stated age, in no acute distress. VITAL SIGNS: Blood pressure 120/34, temperature 97.1, pulse 72, and respirations 16. SKIN: Warm and dry, without rash or erythema. There is an indwelling temporary pacemaker line in the right groin. There is an indwelling tunneled dialysis catheter in the right anterior chest wall. HEENT: The head is normocephalic and atraumatic. The sclerae are white. The pharynx is benign. NECK: Supple. LUNGS: Lung childs are grossly clear to percussion and auscultation. CARDIOVASCULAR EXAMINATION: Reveals a regular rate and rhythm, without rub. ABDOMEN: Soft and nontender, without palpable mass or organomegaly. NEUROLOGICAL EXAMINATION: Reveals the patient to be alert and cooperative, with a nonfocal exam. DIAGNOSTIC DATA: Laboratory studies available at the time of consultation include sodium 137, potassium 4.5, chloride 100, CO2 of 30, BUN 20, creatinine 5.8, and glucose 93. White blood cell count 5300, hemoglobin 10.1, hematocrit 30.5, and platelet count 325,000. ASSESSMENT: 1. End-stage renal disease, for regular dialysis treatment on his Sunday, Sunday, and Sunday schedule. I will coordinate care for dialysis tomorrow. 2. Complete heart block, symptomatic, requiring temporary pacemaker placement and likely permanent pacemaker placement. 3. Diabetes mellitus. 4. Obstructive sleep apnea. 5. Dyslipidemia. PLAN: We will continue to follow the patient and provide regular dialysis support for him. Please see orders. <ELECTRONICALLY SIGNED> By: Napoleon Roberts MD 10/18/16 0921 1112 1238 Napoleon Roberts MD /nt
--- NOTE | ~2016-10-16 | EKG ---
[address] [facility]formerly [facility] [place] [address] ELECTROCARDIOGRAM REPORT Name: BRAYAN REZA Room #: 241-P [facility] IN M.R.#: [id number] Admission: 10/16/16 Attend Phys: Sachin Fairbanks MD Discharge: Date of : 39 Report #: [id number] THIS REPORT FOR: //name// [facility] ED Test Date: 2016-10-16 Test Time: 20:33:47 Pat Name: BRAYAN REZA Department: Room: Gender: M [employer]: MZOOK : 1935 Requested By: Cole Mora Order Number: [id number] MD: Mejia Rayo Measurements Intervals [place] Rate: 33 P: 59 ME: QRS: 94 QRSD: 191 T: -86 QT: 677 QTc: 502 Interpretive Statements Complete AV block with wide QRS complex RBBB and LPFB Compared to ECG 09/13/2016 20:32:30 AV block, complete (third-degree) now present Ventricular premature complex(es) no longer present Electronically Signed On 10-18-2016 9:02:28 CDT by Mejia Rayo [email or web address] <ELECTRONICALLY SIGNED> By: Mejia Rayo MD, [facility] 10/18/16 0902 32 32 Mejia Rayo MD, [facility] /EPI
[~2016-10-16 20:33] MED LIST changes: +ELIQUIS5 MG PO; +GABAPENTIN 100100 MG PO; +LANTUS SOL100 UNIT/1 SQ; +RENA-VITE RX T1 EACH PO
[2016-10-16 20:57] LABS: ABSOLUTE NEUTROPHILS 3.1 thou/uL (1.4-8.2); BASOPHILS 0.5 % (0.0-2.0); EOSINOPHILS 2.2 % (0.0-3.0); HEMATOCRIT 30.5 % (42.0-52.0); HEMOGLOBIN 10.1 gm/dL (14.0-18.0); LYMPHOCYTES 28.6 % (24.0-44.0); MCH 29.5 pg (26.0-34.0); MCV 89.5 fL (80.0-100.0); PLATELET COUNT 325 thou/uL (150-400); POLYS 59.7 % (36.0-66.0); RBC 3.41 mil/uL (4.50-6.00); RDW 20.2 % (10.5-14.5); WBC 5.3 thou/uL (4.0-11.0)
[2016-10-16 20:58] LABS: MANUAL DIFF NO
[2016-10-16 21:01] LABS: ANION GAP 7 mmol/L (7-16); BUN 17 mg/dL (7-18); CALCIUM 9.3 mg/dL (8.5-10.1); CHLORIDE 97 mmol/L (98-107); CO2 31 mmol/L (21-32); CREATININE 5.1 mg/dL (0.6-1.3); GLUCOSE 124 mg/dL (70-99); POTASSIUM 4.4 mmol/L (3.5-5.1); SODIUM 135 mmol/L (136-145)
[2016-10-16 21:13] LABS: NT-PRO BRAIN NAT PEPTIDE 6649 pg/mL (<300); TROPONIN-I < 0.04 ng/mL (<0.04-0.07)
[2016-10-16 21:36] LABS: CALCIUM 9.5 mg/dL (8.5-10.1); MAGNESIUM 1.9 mg/dL (1.8-2.4)
[2016-10-17 04:37] LABS: CREATININE 5.8 mg/dL (0.6-1.3); POTASSIUM 4.5 mmol/L (3.5-5.1)
[2016-10-18 05:32] LABS: HEMATOCRIT 27.8 % (42.0-52.0); HEMOGLOBIN 9.2 gm/dL (14.0-18.0); MCH 29.9 pg (26.0-34.0); MCHC 33.1 g/dL (28.0-37.0); MCV 90.4 fL (80.0-100.0); RBC 3.08 mil/uL (4.50-6.00); WBC 5.4 thou/uL (4.0-11.0)
[2016-10-18 05:44] LABS: ALBUMIN 2.9 g/dL (3.4-5.0); CALCIUM 9.2 mg/dL (8.5-10.1); PHOSPHORUS 6.8 mg/dL (2.5-4.9); POTASSIUM 4.4 mmol/L (3.5-5.1)
[2016-10-18 05:51] LABS: CREATININE 8.2 mg/dL (0.6-1.3)
[2016-10-19 04:27] LABS: HEMOGLOBIN 9.8 gm/dL (14.0-18.0); MCH 29.2 pg (26.0-34.0); MCHC 32.5 g/dL (28.0-37.0); MCV 89.8 fL (80.0-100.0); RBC 3.34 mil/uL (4.50-6.00); RDW 19.8 % (10.5-14.5)
[2016-10-19 04:34] LABS: ALBUMIN 2.9 g/dL (3.4-5.0); CALCIUM 9.1 mg/dL (8.5-10.1); PHOSPHORUS 3.9 mg/dL (2.5-4.9); POTASSIUM 4.2 mmol/L (3.5-5.1)
[2016-10-19 04:37] LABS: CREATININE 5.6 mg/dL (0.6-1.3)
[2016-10-19 15:50] LABS: URINE BLOOD 3+ (Negative); URINE COLOR BROWN; URINE GLUCOSE-RANDOM* NEGATIVE (Negative); URINE KETONES NEGATIVE (Negative); URINE LEUKOCYTES-REFLEX 2+ (Negative); URINE PROTEIN (DIPSTICK) 3+ (Negative); URINE UROBILINOGEN 0.2 E.U./dl (0.2-1.0)
[2016-10-19 16:00] LABS: ICTOTEST (BILI CONFIRMATORY) Negative (Negative); URINE BILIRUBIN NEGATIVE (Negative)
[2016-10-19 16:02] LABS: CASTS None Seen /LPF (None Seen); CRYSTALS None Seen /LPF (None Seen); SQUAMOUS None Seen /LPF (0-3); URINE RBC 0-2 Rare /HPF (0-2); URINE WBC-REFLEX >25 Many /HPF (0-5); WBC CLUMPS Packed (None Seen)
[2016-10-19] MEDS ORDERED: LEVAQUIN 250 M250 MG PO (17:05)
== END 2016-10-19 17:48 | DRG 242 ==
LOC: ER 20:33 → ICU 21:40 → ER 21:40 → ICU 22:29
PROVIDERS: Emergency Medicine; Internal Medicine; Internal Medicine Nephrology; Nurse Practitioner Acute Care
DX: I44.2 Atrioventricular block, complete (principal); N18.6 End stage renal disease; G93.41 Metabolic encephalopathy; I12.0 Hypertensive chronic kidney disease with stage 5 chronic kidney disease or end stage renal disease; E11.40 Type 2 diabetes mellitus with diabetic neuropathy, unspecified; E66.9 Obesity, unspecified; I25.10 Atherosclerotic heart disease of native coronary artery without angina pectoris; E11.51 Type 2 diabetes mellitus with diabetic peripheral angiopathy without gangrene; E11.22 Type 2 diabetes mellitus with diabetic chronic kidney disease; E78.5 Hyperlipidemia, unspecified; G47.33 Obstructive sleep apnea (adult) (pediatric); F17.210 Nicotine dependence, cigarettes, uncomplicated; Z99.2 Dependence on renal dialysis; Z68.31 Body mass index [BMI] 31.0-31.9, adult; Z79.4 Long term (current) use of insulin; Z79.899 Other long term (current) drug therapy; Z95.5 Presence of coronary angioplasty implant and graft; Z91.041 Radiographic dye allergy status; Z88.8 Allergy status to other drugs, medicaments and biological substances; Z88.6 Allergy status to analgesic agent; Z91.018 Allergy to other foods; Z83.3 Family history of diabetes mellitus
CPT/HCPCS: 10078; 32100; 56528